=== PATIENT | male | born 1965 | race Caucasian/White ===

== ENCOUNTER 2021-10-08 18:02 | Emergency (ER) | payer SELFPAY | END 2021-10-08 18:20 | disposition left against medical advice (07) | LOC: FER 18:02 | DX: R10.84 Generalized abdominal pain (principal); F17.210 Nicotine dependence, cigarettes, uncomplicated; Z53.29 Procedure and treatment not carried out because of patient's decision for other reasons | CPT/HCPCS: 99283 ==